=== PATIENT | female | born 1960 | race African-American/Black ===

== ENCOUNTER → 2016-07-28 | Outpatient (CLI) | payer OTHER ==
--- NOTE | 2016-07-28 16:35 | WOMENS IMAGING REPORT ---
EXAM DESCRIPTION: BILAT SCREENING MAMMO W/CAD COMPLETED DATE/TIME: 07/28/2016 2:56 pm REASON FOR STUDY: Z12.31, ROUTINE SCREENING MAMMO Z12.31 ENCNTR SCREEN MAMMOGRAM FOR MALIGNANT NEOP LASM OF SONA COMPARISON: 2008 to 2014 TECHNIQUE: Standard craniocaudal and mediolateral oblique views of each breast recorded using digita l acquisition. LIMITATIONS: None. FINDINGS: No masses, calcifications or architectural distortion. No areas of suspicion. Read with the assistance of CAD. .[facility] - R2 Cenova Version 1.3 .[facility] Imaging - R2 Cenova Version 1.3 .[facility] - R2 Cenova Version 2.4 .[facility] [place] R2 Cenova Version 2.4 .[facility] - R2 Ironworker Apprentice Shop Version 9.2 BREAST DENSITY: b. There are scattered areas of fibroglandular density. BIRAD: 1 NEGATIVE RECOMMENDATION: ROUTINE SCREENING COMMENT: PATIENT NOTIFIED BY LETTER. The [employer] recommends an annual screening mammogram for women aged 40 years or over. Each patient will receive a reminder prior to the anniversary date of her mammogram. The [employer] (ACR) has developed recommendations for screening MRI of the breast s in certain patient populations, to be used in conjunction with mammography. Breast MRI surveillanc e may be appropriate for women with more than 20% lifetime risk of developing breast cancer as deter mined by genetic testing, significant family history of the disease, or history of mantle radiation f or Hodgkins Disease. ACR Practice Guidelines 2008. TECHNICAL DOCUMENTATION: FINDING NUMBER: (1) ASSESSMENT: (1) JOB ID: [id number] [employer]- All Rights Reserved
== END ==
LOC: WI 14:36
PROVIDERS: ATTEND Nurse Practitioner Family
DX: Z12.31 Encounter for screening mammogram for malignant neoplasm of breast (principal)
CPT/HCPCS: 77067; G0202

== ENCOUNTER → 2017-09-06 | Outpatient (CLI) | payer OTHER ==
--- NOTE | 2017-09-06 17:03 | WOMENS IMAGING REPORT ---
EXAM DESCRIPTION: BILAT SCREENING MAMMO W/CAD COMPLETED DATE/TIME: 09/06/2017 1:51 pm REASON FOR STUDY: ROUTINE SCREENING; Z12.31 Z12.31 ENCNTR SCREEN MAMMOGRAM FOR MALIGNANT NEOPLASM O F SONA COMPARISON: 07/28/2016, 04/22/2015, 07/24/2012, and 07/22/2011. TECHNIQUE: Standard craniocaudal and mediolateral oblique views of each breast recorded using HOTELbeata l acquisition. LIMITATIONS: None. FINDINGS: RIGHT BREAST MASSES: No suspicious masses. CALCIFICATIONS: No new or suspicious calcifications. ARCHITECTURAL DISTORTION: None. DEVELOPING DENSITY: None. ASYMMETRY: None noted. OTHER: No other significant findings. LEFT BREAST MASSES: No suspicious masses. CALCIFICATIONS: Irregular calcifications in the inferior medial breast, located 6 to 7 cm from the ni pple, which have increased over the last several years. ARCHITECTURAL DISTORTION: None. DEVELOPING DENSITY: None. ASYMMETRY: None noted. OTHER: No other significant findings. Read with the assistance of CAD. .[facility] - R2 Cenova Version 1.3 .[facility] Imaging - R2 Cenova Version 1.3 .[facility] Imaging - R2 Cenova Version 2.4 .[facility] [place] R2 Cenova Version 2.4 .[facility] - R2 Medical Editor Version 9.2 IMPRESSION: Calcifications in the inferior medial left breast which have slowly increased over the p ast several years. Stable mammographic appearance of the right breast. BREAST DENSITY: a. The breasts are almost entirely fatty. BIRAD: 0 Incomplete: Needs Additional Imaging Evaluation and/or prior Mammograms for Comparison. RECOMMENDATION: RECOMMENDED FOLLOW-UP: Recommend additional evaluation with magnification views of t he left breast. Recommend routine screening mammography of the right breast. The patient will be contacted for additional imaging. COMMENT: The patient has been notified of the results by letter per SA requirements. Additional no tification policies are in place for contacting patient with suspicious or incomplete findings. Quality ID #[id number]: The [employer] recommends an annual screening mammogram for women aged 40 years or over. This facility utilizes a reminder system to ensure that all patients receive reminder letters, and/or direct phone calls for appointments. This includes reminders for routine scr eening mammograms, diagnostic mammograms, or other Breast Imaging Interventions when appropriate. Th is patient will be placed in the appropriate reminder system. The [employer] (ACR) has developed recommendations for screening MRI of the breast s in certain patient populations, to be used in conjunction with mammography. Breast MRI surveillanc e may be appropriate for women with more than 20% lifetime risk of developing breast cancer as deter mined by genetic testing, significant family history of the disease, or history of mantle radiation f or Hodgkins Disease. ACR Practice Guidelines 2008. TECHNICAL DOCUMENTATION: FINDING NUMBER: (1) ASSESSMENT: (1) JOB ID: [id number] [employer]- All Rights Reserved Reading location - IP/workstation name: [email or web address]
== END ==
LOC: WI 13:30
PROVIDERS: ATTEND Nurse Practitioner Family
DX: Z12.31 Encounter for screening mammogram for malignant neoplasm of breast (principal)
CPT/HCPCS: 77067

== ENCOUNTER → 2017-09-12 | Outpatient (CLI) | payer OTHER ==
--- NOTE | 2017-09-13 08:27 | WOMENS IMAGING REPORT ---
EXAM DESCRIPTION: LEFT DIAGNOSTIC MAMMO W/CAD COMPLETED DATE/TIME: 09/12/2017 1:17 pm REASON FOR STUDY: CALCS R92.0 MAMMOGRAPHIC MICROCALCIFICATION FOUND ON DX IMAGING OF COMPARISON: Multiple since 2008 TECHNIQUE: Compression magnification craniocaudal and 90 mediolateral images of the breast recorde d with digital acquisition. Left whole breast 90 mediolateral view LIMITATIONS: None. FINDINGS: BREAST: Left MASSES: No suspicious masses. CALCIFICATIONS: Coarse dense calcification with popcorn appearance, left breast medially. This likel y represents benign calcification from a fibroadenoma ARCHITECTURAL DISTORTION: None. DEVELOPING DENSITY: None. ASYMMETRY: None noted. OTHER: No other significant findings. Read with the assistance of CAD. .[facility] - R2 Cenova Version 1.3 .[facility] Imaging - R2 Cenova Version 1.3 .[facility] Imaging - R2 Cenova Version 2.4 .[facility] [place] - R2 Cenova Version 2.4 .[facility] - R2 Help Desk Consultant Version 9.2 IMPRESSION: Benign calcifications left breast lower inner quadrant. BREAST DENSITY: b. There are scattered areas of fibroglandular density. BIRAD: 2 Benign findings. RECOMMENDATION: RECOMMENDED FOLLOW UP: Please continue yearly bilateral screening mammography/ tomos ynthesis in August 2018. SPECIFIC INTERVENTION/IMAGING/CONSULTATION RECOMMENDED:No additional intervention/ imaging/consultati on needed at this time. COMMUNICATION:Patient notified by letter COMMENT: The patient has been notified of the results by letter per SA requirements. Additional no tification policies are in place for contacting patient with suspicious or incomplete findings. Quality ID #[id number]: The [employer] recommends an annual screening mammogram for women aged 40 years or over. This facility utilizes a reminder system to ensure that all patients receive reminder letters, and/or direct phone calls for appointments. This includes reminders for routine scr eening mammograms, diagnostic mammograms, or other Breast Imaging Interventions when appropriate. Th is patient will be placed in the appropriate reminder system. The [employer] (ACR) has developed recommendations for screening MRI of the breast s in certain patient populations, to be used in conjunction with mammography. Breast MRI surveillanc e may be appropriate for women with more than 20% lifetime risk of developing breast cancer as deter mined by genetic testing, significant family history of the disease, or history of mantle radiation f or Hodgkins Disease. ACR Practice Guidelines 2008. TECHNICAL DOCUMENTATION: FINDING NUMBER: (1) ASSESSMENT: (1) JOB ID: [id number] [employer]- All Rights Reserved Reading location - IP/workstation name: [email or web address]
== END ==
LOC: WI 12:51
PROVIDERS: ATTEND Nurse Practitioner Family
DX: R92.0 Mammographic microcalcification found on diagnostic imaging of breast (principal)

== ENCOUNTER → 2018-10-19 | Outpatient (CLI) | payer OTHER ==
--- NOTE | 2018-10-19 15:31 | WOMENS IMAGING REPORT ---
EXAM DESCRIPTION: BILAT SCREENING MAMMO W/CAD COMPLETED DATE/TIME: 10/19/2018 1:36 pm REASON FOR STUDY: Z12.31 ROUTINE BILATERAL SCREENING Z12.31 ENCNTR SCREEN MAMMOGRAM FOR MALIGNANT N EOPLASM OF RAJI COMPARISON: Multiple since 2008 TECHNIQUE: Standard craniocaudal and mediolateral oblique views of each breast recorded using Fona l acquisition. LIMITATIONS: None. FINDINGS: Findings present which are benign by mammographic criteria. No suspicious masses, calcifi cations or architectural distortion. Pertinent benign findings: Old postsurgical changes from bilateral breast left. Benign bilateral raji ast parenchymal calcifications Read with the assistance of CAD. .[facility] [place] - R2 Comparator Operator Version 9.2 Benign mammographic findings may include one or more of the following: Smooth masses, popcorn/rim/co arse calcifications, asymmetries, post-procedure changes, and lesions with long-standing stability. IMPRESSION: BENIGN MAMMOGRAPHIC FINDINGS. BIRADS 2 BREAST DENSITY: a. The breasts are almost entirely fatty. BIRAD: 2 BENIGN FINDING(S) RECOMMENDATION: ROUTINE SCREENING COMMENT: The patient has been notified of the results by letter per SA requirements. Additional no tification policies are in place for contacting patient with suspicious or incomplete findings. Quality ID #[id number]: The [employer] recommends an annual screening mammogram for women aged 40 years or over. This facility utilizes a reminder system to ensure that all patients receive reminder letters, and/or direct phone calls for appointments. This includes reminders for routine scr eening mammograms, diagnostic mammograms, or other Breast Imaging Interventions when appropriate. Th is patient will be placed in the appropriate reminder system. TECHNICAL DOCUMENTATION: FINDING NUMBER: (1) ASSESSMENT: (1) JOB ID: [id number] [employer]- All Rights Reserved Reading location - IP/workstation name: [facility] [place]-[facility]
== END ==
LOC: WI 13:20
PROVIDERS: ATTEND Nurse Practitioner Family
DX: Z12.31 Encounter for screening mammogram for malignant neoplasm of breast (principal)
CPT/HCPCS: 77067

== ENCOUNTER → 2020-05-08 | Outpatient (CLI) | payer OTHER ==
--- NOTE | 2020-05-08 14:53 | WOMENS IMAGING REPORT ---
EXAM DESCRIPTION: BILAT SCREENING MAMMO W/CAD IMAGES COMPLETED DATE/TIME: 05/08/2020 1:36 pm REASON FOR STUDY: Z12.31 ENCNTR SCREEN MAMMOGRAM FOR MALIGNANT NEOPLASM OF BREAST Z12.31 ENCNTR SCR EEN MAMMOGRAM FOR MALIGNANT NEOPLASM OF SONA COMPARISON: Priors back to 2012 EXAM PARAMETERS: Standard craniocaudal and mediolateral oblique views of each breast recorded using digital acquisition. Read with the assistance of CAD. .[facility] [employer] Version 9.2 LIMITATIONS: None. FINDINGS: No suspicious masses, suspicious calcifications or architectural distortion. No areas of c oncern. IMPRESSION: NEGATIVE MAMMOGRAM. BIRADS 1 BREAST DENSITY: b. There are scattered areas of fibroglandular density. BIRAD: ASSESSMENT: 1 NEGATIVE RECOMMENDATION: ROUTINE SCREENING COMMENT: The patient has been notified of the results by letter per MQSA requirements. Additional no tification policies are in place for contacting patient with suspicious or incomplete findings. Quality ID #[id number]: The [employer] recommends an annual screening mammogram for women aged 40 years or over. This facility utilizes a reminder system to ensure that all patients receive reminder letters, and/or direct phone calls for appointments. This includes reminders for routine scr eening mammograms, diagnostic mammograms, or other Breast Imaging Interventions when appropriate. Th is patient will be placed in the appropriate reminder system. TECHNICAL DOCUMENTATION: FINDING NUMBER: (1) ASSESSMENT: (1) JOB ID: [id number] 2010 [employer]- All Rights Reserved Reading location - IP/workstation name: [email or web address]
--- OUTSIDE RECORDS SUMMARY | 2020-05-09 15:36 | XMS REPORT ---
:1960 [facility] [address] [place] [address] Care Team Providers Name Role Phone Unavailable Unavailable Unavailable Allergies, Adverse Reactions, Alerts Allergy Name Allergy Status Severity Reaction(s) Onset Inactive Treat ing Comments Type Date Date Clinician [place] Allergy to Active Rash substance Medications Ordered Filled Start Stop Current Ordering Indication Dosage Frequency Signature Comments Components Medication Medication Date Date Medication? Clinician (SIG) Name Name acetaminoph No acetaminop en 325 mg hen 325 mg tablet tablet Flucelvax No Flucelvax Quad Quad 60 mcg (15 60 mcg (15 mcg x mcg x 4)/0.5 mL 4)/0.5 mL intramuscul intramuscu ar susp lar susp PHARMACIST PHARMACIST ADMINISTERE ADMINISTER D ED IMMUNIZATIO IMMUNIZATI N ON ADMINISTERE ADMINISTER D AT TIME ED AT TIME OF OF DISPENSING DISPENSING ibuprofen No ibuprofen 400 mg 400 mg tablet tablet lisinopril No 1 Q1D lisinopril 10 10 mg-hydrochl mg-hydroch orothiazide lorothiazi 12.5 mg de 12.5 mg tablet TAKE tablet 1 TABLET BY TAKE 1 MOUTH ONCE TABLET BY DAILY IN MOUTH ONCE THE MORNING DAILY IN FOR 90 DAYS THE MORNING FOR 90 DAYS metformin No metformin ER 500 mg ER 500 mg tablet,exte tablet,ext nded ended release 24 release 24 hr TAKE 2 hr TAKE 2 TABLETS BY TABLETS BY MOUTH EVERY MOUTH 12 HOURS EVERY 12 HOURS ondansetron No ondansetro HCl 4 mg n HCl 4 mg tablet tablet simvastatin No simvastati 20 mg n 20 mg tablet TAKE tablet 1 TABLET BY TAKE 1 MOUTH ONCE TABLET BY DAILY IN MOUTH ONCE THE EVENING DAILY IN FOR 90 DAYS THE EVENING FOR 90 DAYS ciprofloxac No ciprofloxa in 500 mg eleni 500 mg tablet TAKE tablet 1 TABLET BY TAKE 1 MOUTH EVERY TABLET BY 12 HOURS MOUTH FOR 3 DAYS EVERY 12 HOURS FOR 3 DAYS Problems Condition Condition Condition Status Onset Resolution Last Treatin g Comments Name Details Category Date Date Treatment Clinician Date Tear of Tear of Problem Active meniscus of Meniscus of 01-26 knee Knee 00:00: 00 Thrombocyto 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 Essential Essential Problem Active hypertensio Hypertensio n n Menopausal Menopausal Problem Active and and postmenopau Postmenopau willy willy disorders Disorders Atrophic Atrophic Problem Active vaginitis Vaginitis Adult Adult Problem Active atopic Atopic dermatitis Dermatitis Dermatitis Dermatitis Problem Active Osteoarthri Osteoarthri Problem Active tis tis Knee pain Knee Pain Problem Active Fatigue Fatigue Problem Active Nausea and Nausea and Problem Active vomiting Vomiting Diarrhea Diarrhea Problem Active Platelet Platelet Problem Active count Count abnormal Abnormal Blood Blood Problem Active glucose Glucose abnormal Abnormal Abnormal Abnormal Problem Active glucose Glucose level Level Elevated Elevated Problem Active blood Blood pressure Pressure Influenza Influenza Problem Active due to Due to Influenza A Influenza a virus Virus Diabetes Diabetes Problem Active mellitus Mellitus Vitamin D Vitamin D Problem Active deficiency Deficiency Hyperlipide Hyperlipide Problem Active shaheen shaheen Obesity Obesity Problem Active Procedures Procedure Date / Time Performed Performing Clinician Elijah rodriguez pulse oximetry (PROC) 2020-04-16 00:00:00 MAMMO, screening, bilateral 2020-04-16 00:00:00 Knee Surgery 2014-05-27 00:00:00 Hysterectomy Tubal Ligation Results Test Description Test Time Test Comments Text Results Atomic Results Result Comments thyroid panel, serum 2020-04-18 00:00:00 Test Item Value Reference Range Comments Triiodothyronine resin uptake (T3RU) in Serum or Plasma (test 36 % 22-35 code = 3050-2) Thyroxine (T4) [Mass/volume] in Serum or Plasma (test code = 18.0 mcg/dL 5.1-11.9 3026-2) Thyroxine (T4) free index in Serum or Plasma by calculation 6.5 1.4-3.8 (test code = 51382-0) Thyrotropin [Units/volume] in Serum or Plasma (test code = <0.01 0.40-4.50 3016-3) Thyroperoxidase Ab [Units/volume] in Serum or [id number] 00:00:00 Test Item Value Reference Range Comments Thyroperoxidase Ab [Units/volume] in Serum (test 404 IU/mL <9 code = 8099-4) Lipase [Enzymatic activity/volume] in Serum or [id number] 00:00:00 Test Item Value Reference Range Comments Lipase [Enzymatic activity/volume] in Serum or Plasma 71 U/L 7-60 (test code = 3040-3) Hemoglobin A1c/Hemoglobin.total in [id number] 12:01:09 Test Item Value Reference Range Comments HbA1c (test code = HbA1c) 5.8 Glucose [Mass/volume] in Capillary [id number] 12:01:00 Test Item Value Reference Range Comments Blood Sugar(finger stick) (test code = Blood 115 Sugar(finger stick)) pulse oximetry (PROC)2020-04-16 11:59:39 Test Item Value Reference Range Comments pulse oximetry (test code = pulse oximetry) 98 Lipid 1995 panel - Serum or [id number] 00:00:00 Test Item Value Reference Range Comments Cholesterol [Mass/volume] in Serum or 176 mg/dL <200 Plasma (test code = 2093-3) Cholesterol in HDL [Mass/volume] in Serum 63 mg/dL > or = 50 or Plasma (test code = 2085-9) Triglyceride [Mass/volume] in Serum or 121 mg/dL <150 Plasma (test code = 2571-8) Cholesterol in LDL [Mass/volume] in Serum 91 mg/dL (calc) or Plasma by calculation (test code = 75423-1) Cholesterol.total/Cholesterol.in HDL [Mass 2.8 (calc) <5.0 ratio] in Serum or Plasma (test code = 9830-1) Cholesterol in LDL/Cholesterol in HDL [Mass 1.4 (calc) Ratio] in Serum or Plasma (test code = 44801-4) Cholesterol non HDL [Mass/volume] in Serum 113 mg/dL (calc) <130 or Plasma (test code = 99516-4) Comprehensive metabolic 2000 panel - Serum or [id number] 00:00:00 Test Item Value Reference Range Comments Glucose [Mass/volume] in Serum or Plasma 111 mg/dL 65-99 (test code = 2345-7) Urea nitrogen [Mass/volume] in Serum or 15 mg/dL 7-25 Plasma (test code = 3094-0) Creatinine [Mass/volume] in Serum or 0.67 mg/dL 0.50-0.99 Plasma (test code = 2160-0) Glomerular filtration rate/1.73 sq 96 mL/min/1.73m2 > or = 60 M.predicted [Volume Rate/Area] in Serum, Plasma or Blood by Creatinine-based formula (MDRD) (test code = 43373-6) Glomerular filtration rate/1.73 sq 111 mL/min/1.73m2 > or = 60 M.predicted among blacks [Volume Rate/Area] in Serum, Plasma or Blood by Creatinine-based formula (MDRD) (test code = 34909-9) Urea nitrogen/Creatinine [Mass Ratio] in not applicable 6-22 Serum or Plasma (test code = 3097-3) Sodium [Moles/volume] in Serum or Plasma 136 mmol/L 135-146 (test code = 2951-2) Potassium [Moles/volume] in Serum or 4.5 mmol/L 3.5-5.3 Plasma (test code = 2823-3) Chloride [Moles/volume] in Serum or Plasma 99 mmol/L 98-11 0 (test code = 2075-0) Carbon dioxide, total [Moles/volume] in 26 mmol/L 20-32 Serum or Plasma (test code = 2027-9) Calcium [Mass/volume] in Serum or Plasma 10.4 mg/dL 8.6-10. 4 (test code = 73228-3) Protein [Mass/volume] in Serum or Plasma 8.4 g/dL 6.1-8.1 (test code = 2885-2) Albumin [Mass/volume] in Serum or Plasma 4.3 g/dL 3.6-5.1 (test code = 1751-7) Globulin [Mass/volume] in Serum by 4.1 g/dL (calc) 1.9-3.7 calculation (test code = 96634-7) Albumin/Globulin [Mass Ratio] in Serum or 1.0 (calc) 1.0-2. 5 Plasma (test code = 1759-0) Bilirubin.total [Mass/volume] in Serum or 0.5 mg/dL 0.2-1. 2 Plasma (test code = 1974-) Alkaline phosphatase [Enzymatic 97 U/L 37-153 activity/volume] in Serum or Plasma (test code = 6768-6) Aspartate aminotransferase [Enzymatic 22 U/L 10-35 activity/volume] in Serum or Plasma (test code = 1920-8) Alanine aminotransferase [Enzymatic 23 U/L 6-29 activity/volume] in Serum or Plasma (test code = 1742-6) CBC W Auto Differential panel - [id number] 00:00:00 Test Item Value Reference Range Comments Leukocytes [#/volume] in Blood by Automated 5.8 thousand/uL 3.8- 10.8 count (test code = 6690-2) Erythrocytes [#/volume] in Blood by 4.29 million/uL 3.80-5.10 Automated count (test code = 789-8) Hemoglobin [Mass/volume] in Blood (test code 12.4 g/dL 11. 7-15.5 = 718-7) Hematocrit [Volume Fraction] of Blood by 39.0 % 35.0-45 .0 Automated count (test code = 4544-3) Erythrocyte mean corpuscular volume [Entitic 90.9 fL 80. 0-100.0 volume] by Automated count (test code = 787-2) Erythrocyte mean corpuscular hemoglobin 28.9 pg 27.0-33. 0 [Entitic mass] by Automated count (test code = 785-6) Erythrocyte mean corpuscular hemoglobin 31.8 g/dL 32.0-36. 0 concentration [Mass/volume] by Automated count (test code = 786-4) Erythrocyte distribution width [Ratio] by 12.8 % 11.0-1 5.0 Automated count (test code = 788-0) Platelets [#/volume] in Blood by Automated 306 thousand/uL 140-4 00 count (test code = 777-3) Platelet mean volume [Entitic volume] in 11.1 fL 7.5-12. 5 Blood by Kevin (test code = 776-5) Neutrophils [#/volume] in Blood by Automated 3126 cells/uL 150 0-7800 count (test code = 751-8) Lymphocytes [#/volume] in Blood by Automated 2100 cells/uL 850 -3900 count (test code = 731-0) Monocytes [#/volume] in Blood by Automated 493 cells/uL 200-9 50 count (test code = 742-7) Eosinophils [#/volume] in Blood by Automated 52 cells/uL 15- 500 count (test code = 711-2) Basophils [#/volume] in Blood by Automated 29 cells/uL 0-200 count (test code = 704-7) Neutrophils/100 leukocytes in Blood by 53.9 % Automated count (test code = 770-8) Lymphocytes/100 leukocytes in Blood by 36.2 % Automated count (test code = 736-9) Monocytes/100 leukocytes in Blood by 8.5 % Automated count (test code = 5905-5) Eosinophils/100 leukocytes in Blood by 0.9 % Automated count (test code = 713-8) Basophils/100 leukocytes in Blood by 0.5 % Automated count (test code = 706-2) Thyrotropin [Units/volume] in Serum or [id number] 00:00:00 Test Item Value Reference Range Comments Thyrotropin [Units/volume] in Serum or Plasma (test <0.01 0.40-4.50 code = 3016-3) Drugs identified in Urine by Screen [id number] 11:11:00 Test Item Value Reference Range Comments BZO (test code = BZO) negative BAR (test code = BAR) negative DONA (test code = DONA) negative THC (test code = THC) negative MET (test code = MET) negative OPI (test code = OPI) negative MTD (test code = MTD) negative TCA (test code = TCA) negative OXY (test code = OXY) negative MDMA (test code = MDMA) negative PCP (test code = PCP) negative AMP (test code = AMP) negative Assessments Condition Name Status Diagnosis Date Treating Clinici an Screening for osteoporosis 2020-04-16 11:56:09 Venereal disease screening 2020-04-16 11:56:09 Depression screening 2020-04-16 11:56:09 Type 2 diabetes mellitus 2020-04-16 13:20:43 Hyperthyroidism 2020-04-16 13:20:52 Acute urinary tract infection 2020-04-16 13:21:3 4 Screening mammography 2020-04-16 13:22:07 Screening for malignant neoplasm of 2020-04-16 1 3:22:25 colon Body mass index 30+ - obesity 2020-04-16 13:22:5 7 Administration of influenza vaccine 2020-04-16 1 3:23:19 Essential hypertension 2020-04-16 15:08:41 Diabetes mellitus Active 2020-04-16 15:08:42 Hyperlipidemia Active 2020-04-16 15:08:47 Obesity Active 2020-04-23 18:53:39 George thyroiditis Active 2020-04-25 12:05:42 Adult health examination Active 2020-04-16 11:56:09 Gynecologic examination Active 2020-04-16 11:56:09 Long-term drug therapy Active 2018-07-17 18:04:21 Diabetes mellitus Active 2018-07-17 18:02:43 Essential hypertension Active 2018-07-17 18:02:43 Obesity Active 2018-07-17 18:02:43 Encounters Start End Encounter Admission Attending Care Care Encounter Date/Time Date/Time Type Type Clinicians Facility Department ID 2020-04-16 2020-04-16 [facility] [id number] 00:00:00 00:00:00 Osmany Langley Immediate & 1021 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 Immunizations Ordered Immunization Filled Immunization Date Status Commen ts Refusal Reason Name Name influenza, 2020-04-17 Completed injectable, 15:13:00 quadrivalent Tdap 2017-10-05 Completed 17:26:35 influenza, seasonal, 2015-04-03 Completed injectable 12:17:44 influenza, seasonal, 2014-04-23 Completed injectable 15:35:02 Plan of Treatment Planned Activity Planned Date Details Comments Future Appointment 2020-05-10 14:20:00 Adelita Langley [address] [facility] [address]; , [place] [address] Social History Smoking Status Start Date Stop Date Never Smoker Vital Signs Vital Name Observation Time Observation Value Comments BP Diastolic 2020-04-16 00:00:00 89 mm[Hg] Height 2020-04-16 00:00:00 61 [in_i] BMI (Body Mass Index) 2020-04-16 00:00:00 34.4 kg/m2 BP Systolic 2020-04-16 00:00:00 120 mm[Hg] Body Weight 2020-04-16 00:00:00 182 [lb_av] BP Diastolic 2018-07-17 00:00:00 88 mm[Hg] Height 2018-07-17 00:00:00 61 [in_i] BMI (Body Mass Index) 2018-07-17 00:00:00 33.3 kg/m2 BP Systolic 2018-07-17 00:00:00 138 mm[Hg] Body Weight 2018-07-17 00:00:00 176 [lb_av] Hospital Discharge Instructions 1. Adult health examination thyroid panel, serum lipase, serum or plasma pulse oximetry (PROC) well visit, women 50 to 65: care instructions well visit, over 65: care instructions 2. Depression screening 3. Type 2 diabetes mellitus HbA1c (hemoglobin A1c), blood glucose, fingerstick, blood urinalysis, dipstick 4. Hyperthyroidism thyroid peroxidase (tpo) Ab, serum diagnostic radiology referral 5. Acute urinary tract infection ciprofloxacin 500 mg tablet 6. Screening mammography MAMMO, screening, bilateral 7. Screening for malignant neoplasm of colon gastroenterology referral 8. Body mass index 30+ - obesity 9. Administration of influenza vaccine Afluria Quad 60 mcg (15 mcg x 4)/0.5 mL intramuscular susp. 10. Essential hypertension lisinopril 10 mg-hydrochlorothiazide 12.5 mg tablet 11. Diabetes mellitus metformin ER 500 mg tablet,extended release 24 hr 12. Hyperlipidemia simvastatin 20 mg tablet 13. Obesity 14. George thyroiditis endocrinology referral Discussion Note 30 min lab review and exam. Screenings reviewed with pt. After performing a Medical Screening Examination. Pt is in agreement with the plan of care as noted.
== END ==
LOC: WI 13:17
PROVIDERS: ATTEND Nurse Practitioner Family
DX: Z12.31 Encounter for screening mammogram for malignant neoplasm of breast (principal)
CPT/HCPCS: 77067